=== PATIENT | female | born 1980 | race Caucasian/White ===

== ENCOUNTER 2024-05-21 12:31 | Emergency (ER) | payer OTHER, SELFPAY ==
[2024-05-21 12:41] VITALS: BP 123/76
--- NOTE | 2024-05-21 13:21 | ED.GENMED ---
History of Present Illness
General
Chief Complaint: Rabies
Source: patient
Exam Limitations: none
Time Seen by Provider: 05/21/24 12:49
Nursing documentation reviewed up to this point in time: agreed with
History of Present Illness
History of Present Illness:
43 yo female w no pmhx here for Rabies immunization after finding a live bat in her home last night. No know contact with the bat
Past History
Past History
ED Past Medical History: None
ED Past Surgical History: None
Social History
Tobacco: Non-smoker
Alcohol: Occasional
Personal:
Living: with family
Review of Systems
Review of Systems
Allergies reviewed?: Yes
All Other Systems: ROS reviewed and negative except as documented in HPI and ROS
Skin: Reports no symptoms
Phy Exam
Physical Exam
Physical Exam:
PHYSICAL EXAMINATION:
General: no apparent distress, not acutely ill
Neuro: alert and oriented.
Heart: RRR
Lungs: CTA
Psychiatric: well kept. interactive and cooperative
Musculoskeletal: Moves with ease
Skin: Warm, pink.
Course
Orders/Labs/Results
Orders:
Orders
05/21/24 13:12
Rabies Immune Globulin/Pf [HyperRAB] 1,326 unit IM NOW STA
05/21/24 13:15
Rabies Vaccine (Pcec)/Pf [Rabavert Rabies Vacc W-Diluent] 2.5 unit IM .ONCE ONE
Vital Signs
Initial and Last Documented VS:
Initial Vital Signs
Temp Pulse Resp BP Pulse Ox
98.1 F 71 18 123/76 100
05/21/24 12:41 05/21/24 12:41 05/21/24 12:41 05/21/24 12:41 05/21/24 12:41
Last Documented Vital Signs
Temp Pulse Resp BP Pulse Ox
98.1 F 71 18 123/76 100
05/21/24 12:41 05/21/24 12:41 05/21/24 12:41 05/21/24 12:41 05/21/24 12:41
MDM/Problems Addressed
MDM/Problems Addressed:
43 yo female w no pmhx here for Rabies immunization after finding a live bat in her home last night. No know contact with the bat
*Critical Care Note
Total Time (30-74mins, 75-104mins- exclusive of procedures): Not Applicable
ED Attending Note
-
Portions of this chart may have been created with voice recognition software.� Occasional wrong word or��sound alike� substitutions may have occurred due to the inherent limitations of voice recognition software.
Discharge Plan
Departure
Patient Disposition: Home (Routine Discharge)
Date of Disposition: 05/21/24
Time of Disposition: 13:23
Patient with high blood pressure during this ER visit?: No
Condition: Good
Discharge Problem:
Need for immunization against rabies
Instructions: Rabies
Referrals:
Yudi Adams MD [Family Provider] -
Stand Alone Forms: Rabies Vaccine Post Exp Dosing
Activity Restrictions/Additional Instructions:
As we discussed, return here in 3 days for your next Rabies vaccine.
Call the out patient Infusion Center and make appointments for your next 2 vaccines. Take a copy of the prescription with you.
Interventions
Interventions:
*Risk Screen - Suicide Last Done: 05/21/24 12:35
*General Assessment Last Done: 05/21/24 12:35
*Neglect/Abuse Screening Last Done: 05/21/24 12:35
*Nursing Disposition Last Done: 05/21/24 14:20
Discharge Date and Time
Discharge Date/Time: 05/21/24 14:21
Print Language: LAO
[2024-05-21] MEDS: RABAVERT RABIES VACC W-DILUENT 2.5 UNIT IM (13:47)
[2024-05-21] MEDS: HyperRAB 1326 UNIT IM (13:49)
== END 2024-05-21 14:21 | disposition home or self-care (01) ==
LOC: EMR 12:31
PROVIDERS: EMERGENCY PHYSICIAN Emergency Medicine; FAMILY PHYSICIAN Family Medicine
DX: Z20.3 Contact with and (suspected) exposure to rabies (principal); Z23 Encounter for immunization; Z29.14 Encounter for prophylactic rabies immune globulin
CPT/HCPCS: 99282; 90471; 96372; 90375; 90675

== ENCOUNTER 2024-05-24 08:49 | Emergency (ER) | payer OTHER, SELFPAY ==
[2024-05-24 09:08] VITALS: BP 102/69
--- NOTE | 2024-05-24 09:22 | ED.GENMED ---
History of Present Illness
<Allie Manjarrez PA-C - Last Filed: 05/24/24 09:44>
General
Chief Complaint: Rabies
Source: patient
Exam Limitations: none
Time Seen by Provider: 05/24/24 09:11
Nursing documentation reviewed up to this point in time: agreed with
History of Present Illness
History of Present Illness:
43-year-old female presents to the emergency department for second rabies vaccine. Patient found a bat in her room when she woke up last Sunday night. Patient tolerated first vaccination well. No other concerns today
Past History
<Allie Manjarrez PA-C - Last Filed: 05/24/24 09:44>
Past History
ED Past Medical History: None
ED Past Surgical History: None
Social History
Tobacco: Non-smoker
Alcohol: Occasional
Personal:
Living: with family
Review of Systems
<Allie Manjarrez PA-C - Last Filed: 05/24/24 09:44>
Review of Systems
Allergies reviewed?: Yes
All Other Systems: ROS reviewed and negative except as documented in HPI and ROS
Phy Exam
<FACUNDO Kinsey Last Filed: 05/24/24 09:44>
Physical Exam
Physical Exam:
Vitals: Patient's vital signs are stable
General: Patient is well appearing, no acute distress
Skin: Warm and dry, no rashes or lesions
Head: Normocephalic, atraumatic
Throat: Protecting airway
Cardiac: Regular rate and rhythm, no murmurs.
Pulm: Normal respiratory effort, no wheezes, rales, rhonchi heard on exam.
Abdomen: No abdominal tenderness.
Extremities: No evidence of cyanosis or edema
Neuro: AAOx3. CN II-XII intact. No focal neurologic deficits.
Psychiatric: Normal affect.
Course
<Allie Manjarrez PA-C - Last Filed: 05/24/24 09:44>
Orders/Labs/Results
Orders:
Orders
05/24/24 09:18
Rabies Vaccine (Pcec)/Pf [Rabavert Rabies Vacc W-Diluent] 2.5 unit IM .ONCE ONE
Vital Signs
Initial and Last Documented VS:
Initial Vital Signs
Temp Pulse Resp BP Pulse Ox
97.8 F 85 20 102/69 99
05/24/24 09:08 05/24/24 09:08 05/24/24 09:08 05/24/24 09:08 05/24/24 09:08
Last Documented Vital Signs
Temp Pulse Resp BP Pulse Ox
97.8 F 85 20 102/69 99
05/24/24 09:08 05/24/24 09:08 05/24/24 09:08 05/24/24 09:08 05/24/24 09:08
<Kacie Lawson MD - Last Filed: 05/24/24 09:33>
Orders/Labs/Results
Orders:
Orders
05/24/24 09:18
Rabies Vaccine (Pcec)/Pf [Rabavert Rabies Vacc W-Diluent] 2.5 unit IM .ONCE ONE
Vital Signs
Initial and Last Documented VS:
Initial Vital Signs
Temp Pulse Resp BP Pulse Ox
97.8 F 85 20 102/69 99
05/24/24 09:08 05/24/24 09:08 05/24/24 09:08 05/24/24 09:08 05/24/24 09:08
Last Documented Vital Signs
Temp Pulse Resp BP Pulse Ox
97.8 F 85 20 102/69 99
05/24/24 09:08 05/24/24 09:08 05/24/24 09:08 05/24/24 09:08 08/10/24 09:08
<Allie Manjarrez PA-C - Last Filed: 05/24/24 09:44>
MDM/Problems Addressed
Differential Diagnosis Includes:
Rabies prophylaxis
MDM/Problems Addressed:
43-year-old female presenting for second rabies vaccination following bat exposure last week. No obvious bite from bat. Tolerated first vaccination well. Will return to emergency department or infusion clinic for third and fourth vaccinations on
05/28/24 and 06/04/24. Patient received vaccination without any difficulty. Return precautions discussed.
Chronic conditions affecting care:
N/A
Acute Exacerbation and/or Progression of Chronic Illness:
N/A
<Allie Manjarrez PA-C - Last Filed: 05/24/24 09:44>
*Pulse Oximetry
Patient hypoxic: no
*EKG
Interpreted by ED Provider?: NA
*Principal Bioinformatics Specialist Interpretation
Rate: Principal Bioinformatics Specialist- N/A
*Critical Care Note
Total Time (30-74mins, 75-104mins- exclusive of procedures): Not Applicable
ED Attending Note
<Allie Manjarrez PA-C - Last Filed: 05/24/24 09:44>
-
Portions of this chart may have been created with voice recognition software.� Occasional wrong word or��sound alike� substitutions may have occurred due to the inherent limitations of voice recognition software.
<Kacei Lawson MD - Last Filed: 05/24/24 09:33>
ED Attending Note
Patient seen and examined by attending physician: Yes
I performed the substantive portion of visit, reviewed & personally made and approve the management plan that is documented in note by myself or STEPHENIE.: Yes
ED Attending Note:
Patient appears well and comfortable. There is no sign of skin breakdown or animal bite. Patient here for rabies prophylaxis due to exposure to bat
Discharge Plan
Departure
Patient Disposition: Home (Routine Discharge)
Date of Disposition: 05/24/24
Time of Disposition: 09:29
Patient with high blood pressure during this ER visit?: No
Condition: Good
Covid-19: Not Applicable
Discharge Problem:
Rabies, need for prophylactic vaccination against
Prescriptions:
No Action
No Current Medications
0
Referrals:
Yudi Adams MD [Family Provider] -
Stand Alone Forms: Rabies Vaccine Post Exp Dosing
Activity Restrictions/Additional Instructions:
RETURN TO THE EMERGENCY DEPARTMENT WITH ANY FEVERS, SHORTNESS OF BREATH, SIGNIFICANT PAIN, SWELLING, OR REDNESS AROUND INJECTION SITE, OR ANY OTHER CONCERNS
-As discussed�you still have 2 more rabies vaccinations complete. These should be done on 05/28 and 06/04. You can return to the emergency department for schedule with the infusion center for these vaccinations.
Interventions
Interventions:
*Risk Screen - Suicide Last Done: 05/24/24 09:08
*General Assessment Last Done: 05/24/24 09:08
*Neglect/Abuse Screening Last Done: 05/24/24 09:08
ED- Fall Risk Assessment Last Done: 05/24/24 09:31
*ED COVID-19 Vaccine History Last Done: 05/24/24 09:31
Discharge Date and Time
Print Language: DIVEHI
[2024-05-24 09:31] VITALS: BMI 22.8
[2024-05-24] MEDS: RABAVERT RABIES VACC W-DILUENT 2.5 UNIT IM (10:15)
== END 2024-05-24 10:22 | disposition home or self-care (01) ==
LOC: EMR 08:49
PROVIDERS: EMERGENCY PHYSICIAN Emergency Medicine; FAMILY PHYSICIAN Family Medicine
DX: Z20.3 Contact with and (suspected) exposure to rabies (principal); Z23 Encounter for immunization
CPT/HCPCS: 90471; 90675; 99281

== ENCOUNTER 2024-05-28 09:10 | Emergency (ER) | payer OTHER, SELFPAY ==
[2024-05-28 09:23] VITALS: BP 115/78
--- NOTE | 2024-05-28 10:20 | ED.GENMED ---
History of Present Illness
General
Chief Complaint: Rabies
Source: patient
Exam Limitations: none
Time Seen by Provider: 05/28/24 10:16
Nursing documentation reviewed up to this point in time: agreed with
History of Present Illness
History of Present Illness:
43-year-old female presenting for third rabies vaccination after bat exposure. No concerns at this time otherwise.
Past History
Past History
ED Past Medical History: None
ED Past Surgical History: None
Social History
Tobacco: Non-smoker
Alcohol: Occasional
Personal:
Living: with family
Review of Systems
Review of Systems
Allergies reviewed?: Yes
All Other Systems: ROS reviewed and negative except as documented in HPI and ROS
Phy Exam
Physical Exam
Physical Exam:
GENERAL: Alert , in no apparent distress
EYE: No visual abnormalities.
NECK: Trachea midline
ENT: No visible abnormalities.
LUNGS: No acute respiratory distress
NEUROLOGICAL: Alert and oriented
SKIN: Skin intact. No visible changes.
MUSCULOSKELETAL: Moving extremities normally
PSYCH: Normal and appropriate interaction.
Course
Orders/Labs/Results
Orders:
Orders
05/28/24 10:21
Rabies Vaccine (Pcec)/Pf [Rabavert Rabies Vacc W-Diluent] 2.5 unit IM .ONCE ONE
Vital Signs
Initial and Last Documented VS:
Initial Vital Signs
Temp Pulse Resp BP Pulse Ox
97.8 F 75 17 115/78 97
05/28/24 09:23 05/28/24 09:23 05/28/24 09:23 05/28/24 09:23 05/28/24 09:23
Last Documented Vital Signs
Temp Pulse Resp BP Pulse Ox
97.8 F 75 17 115/78 97
05/28/24 09:23 05/28/24 09:23 05/28/24 09:23 05/28/24 09:23 05/28/24 09:23
MDM/Problems Addressed
MDM/Problems Addressed:
43-year-old female presenting for third rabies vaccination. No concerns otherwise at this time.
*Critical Care Note
Total Time (30-74mins, 75-104mins- exclusive of procedures): Not Applicable
ED Attending Note
-
Portions of this chart may have been created with voice recognition software.� Occasional wrong word or��sound alike� substitutions may have occurred due to the inherent limitations of voice recognition software.
Discharge Plan
Departure
Patient Disposition: Home (Routine Discharge)
Date of Disposition: 05/28/24
Time of Disposition: 10:26
Patient with high blood pressure during this ER visit?: No
Condition: Good
Covid-19: Not Applicable
Discharge Problem:
Exposure to bat without known bite
Instructions: Rabies
Prescriptions:
No Action
No Current Medications
0
Activity Restrictions/Additional Instructions:
You came to the emergency department today for the third rabies vaccination. Please return in 1 week for the fourth dose.
Discharge Date and Time
Print Language: PALAUAN
[2024-05-28] MEDS: RABAVERT RABIES VACC W-DILUENT 2.5 UNIT IM (11:07)
== END 2024-05-28 11:30 | disposition home or self-care (01) ==
LOC: EMR 09:10
PROVIDERS: EMERGENCY PHYSICIAN Emergency Medicine; FAMILY PHYSICIAN Family Medicine
DX: Z20.3 Contact with and (suspected) exposure to rabies (principal); Z23 Encounter for immunization
CPT/HCPCS: 90471; 90675; 99281

== ENCOUNTER 2024-06-07 08:30 | Emergency (ER) | payer OTHER, SELFPAY ==
[2024-06-07 08:48] VITALS: BP 108/77
--- NOTE | 2024-06-07 09:39 | ED.GENMED ---
History of Present Illness
General
Chief Complaint: Rabies
Source: patient
Exam Limitations: none
Time Seen by Provider: 06/07/24 09:31
History of Present Illness
History of Present Illness:
43-year-old female presents for her last rabies vaccine. There was a bat in house. No issues with the prior vaccines.
Past History
Past History
ED Past Medical History: None
ED Past Surgical History: None
Social History
Tobacco: Non-smoker
Alcohol: Occasional
Personal:
Living: with family
Phy Exam
Physical Exam
Physical Exam:
Well-appearing female no acute respiratory distress she is alert conversing appropriate
Course
Orders/Labs/Results
Orders:
Orders
06/07/24 09:31
Rabies Vaccine (Pcec)/Pf [Rabavert Rabies Vacc W-Diluent] 2.5 unit IM .ONCE ONE
Vital Signs
Initial and Last Documented VS:
Initial Vital Signs
Temp Pulse Resp BP Pulse Ox
98.0 F 89 16 108/77 97
06/07/24 08:48 06/07/24 08:48 06/07/24 08:48 06/07/24 08:48 06/07/24 08:48
Last Documented Vital Signs
Temp Pulse Resp BP Pulse Ox
98.0 F 89 16 108/77 97
06/07/24 08:48 06/07/24 08:48 06/07/24 08:48 06/07/24 08:48 06/07/24 08:48
MDM/Problems Addressed
Differential Diagnosis Includes:
Rabies vaccine #4 given today. Stable for discharge return precautions
*Critical Care Note
Total Time (30-74mins, 75-104mins- exclusive of procedures): Not Applicable
ED Attending Note
-
Portions of this chart may have been created with voice recognition software.� Occasional wrong word or��sound alike� substitutions may have occurred due to the inherent limitations of voice recognition software.
Discharge Plan
Departure
Patient Disposition: Home (Routine Discharge)
Date of Disposition: 06/07/24
Time of Disposition: 09:40
Patient with high blood pressure during this ER visit?: No
Discharge Problem:
Rabies, need for prophylactic vaccination against
Prescriptions:
No Action
No Current Medications
0
Activity Restrictions/Additional Instructions:
Return if needed
Discharge Date and Time
Print Language: TONGAN
[2024-06-07] MEDS: RABAVERT RABIES VACC W-DILUENT 2.5 UNIT IM (10:07)
[2024-06-07 10:33] VITALS: BP 112/62
== END 2024-06-07 10:36 | disposition home or self-care (01) ==
LOC: EMR 08:30
PROVIDERS: EMERGENCY PHYSICIAN Emergency Medicine; FAMILY PHYSICIAN Family Medicine
DX: Z23 Encounter for immunization (principal); Z20.3 Contact with and (suspected) exposure to rabies
CPT/HCPCS: 90471; 90675

== ENCOUNTER → 2025-08-08 14:12 | Outpatient (REF) | payer OTHER, SELFPAY | LOC: WDC 14:12 | PROVIDERS: ATTENDING PHYSICIAN Family Medicine | DX: Z12.31 Encounter for screening mammogram for malignant neoplasm of breast (principal) | CPT/HCPCS: 77063; 77067 ==